=== PATIENT | female | born 2000 | race Caucasian/White ===

== ENCOUNTER → 2024-10-08 18:42 | Outpatient (CLI) | payer OTHER, SELFPAY ==
--- NOTE | 2024-10-08 18:47 | DI.MRI.S_ITS ---
PROCEDURE: MR HUMERUS LT WO/W CON INDICATIONS: l HUMERUS INTRAMEDULLARY DIAPHYSEAL BONE LESION TECHNIQUE: Noncontrast coronal T1 spin echo and STIR, sagittal T1 spin echo with fat saturation and STIR, axial T1 spin echo and T2 fast spin echo with fat saturation. After the administration of contrast, axial/sagittal/coronal T1 spin echo with fat saturation through the left upper arm. COMPARISON: None. FINDINGS: Image quality: Excellent. Bones: There is suggestion of a 0.9 x 0.9 x 2 cm heterogeneous marrow signal structure within medullary space of proximal right humeral diaphysis best seen on series 5, image 10 and series 8, image 17. No associated adjacent marrow edema or cortical disruption is seen. No abnormal periosteal reaction. No other intraosseous lesions. No abnormal intraosseous enhancement. Soft tissues: No soft tissue masses are visualized. The scanned muscles demonstrate normal overall bulk and internal signal. Subcutaneous tissues appear normal as well. No abnormal soft tissue enhancement. IMPRESSION: 1. 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 No associated bony erosion or cortical destruction. No abnormal periosteal reaction. 2. No enhancing soft tissue mass or drainable fluid collection. No area of abnormal intramuscular enhancement. Dictated by: Dav Lanza M.D. on 10/12/2024 at 10:55 Approved by: Dav Lanza M.D. on 10/12/2024 at 11:01
== END ==
LOC: MRI 18:45
PROVIDERS: Referring Provider Student in an Organized Health Care Education/Training Program; Visit Provider Student in an Organized Health Care Education/Training Program
DX: M84.822 Other disorders of continuity of bone, left humerus (principal)
CPT/HCPCS: 73220; A9579

== ENCOUNTER → 2025-03-06 09:38 | Outpatient (CLI) | payer OTHER, SELFPAY ==
--- NOTE | 2025-03-06 | DI.CT.S_ITS ---
PROCEDURE: CT UE LT WO CON INDICATIONS: ? NON UNIOIN CLAVICLE FRACTURE TECHNIQUE: Noncontrast 0.75 mm thick sections acquired from the acromioclavicular joint to the inferior scapula, with coronal and sagittal reformatting. COMPARISON: [facility], MR, MR HUMERUS LT WO/W CON, 10/08/2024, 19:00. FINDINGS: Image quality: Excellent. Bones: Plate and screw fixation of a mid clavicular fracture, in near anatomic alignment. No bridging callus formation to suggest healing. Multiple slightly proud screws. Otherwise no hardware complication. The acromioclavicular and the glenohumeral joints are unremarkable. Soft tissues: No significant glenohumeral effusion. No left axillary lymphadenopathy. Visualized left lung is unremarkable. IMPRESSION: Plate and screw fixation of the midclavicular fracture, in near anatomic alignment. No bridging callus formation to suggest healing. Dictated by: Thelma Benson M.D. on 03/08/2025 at 16:13 Approved by: Thelma Benson M.D. on 03/08/2025 at 16:24
== END ==
LOC: CT 09:39
PROVIDERS: Referring Provider Student in an Organized Health Care Education/Training Program; Visit Provider Student in an Organized Health Care Education/Training Program
DX: S42.002A Fracture of unspecified part of left clavicle, initial encounter for closed fracture (principal); X58.XXXA Exposure to other specified factors, initial encounter
CPT/HCPCS: 73200